=== PATIENT | male | born 1965 | race Caucasian/White ===

== ENCOUNTER 2023-11-12 07:26 | Day surgery (SDC) | payer BC ==
[2023-11-09 15:09] VITALS: BMI 25.8
[2023-11-12 07:46] VITALS: RESP 18; TEMP 97.6
[2023-11-12 12:13] VITALS: BP 110/64; PULSE 64
== END 2023-11-12 09:30 | disposition home or self-care (01) ==
LOC: FASU-ENDO 07:26
PROVIDERS: ATTEND Internal Medicine Gastroenterology
PROC: 0DBP8ZX Excision of Rectum, Via Natural or Artificial Opening Endoscopic, Diagnostic (ICD-10-PCS; 2023-11-12)
PROC: 0DBH8ZX Excision of Cecum, Via Natural or Artificial Opening Endoscopic, Diagnostic (ICD-10-PCS; principal; 2023-11-12 08:33)
DX: Z12.11 Encounter for screening for malignant neoplasm of colon (principal); D12.0 Benign neoplasm of cecum; K62.1 Rectal polyp; Z86.010 Personal history of colon polyps
CPT/HCPCS: 88305-TC

== ENCOUNTER 2024-11-30 07:43 | Day surgery (SDC) | payer BC ==
[2024-11-28 17:40] VITALS: BMI 28.1
[2024-11-30 09:15] VITALS: TEMP 98
[2024-11-30 09:29] VITALS: RESP 18
[2024-11-30 09:31] VITALS: BP 127/79; PULSE 60
== END 2024-11-30 09:58 | disposition home or self-care (01) ==
LOC: FASU-ENDO 07:43
PROVIDERS: ATTEND Internal Medicine Gastroenterology
PROC: 0DB78ZX Excision of Stomach, Pylorus, Via Natural or Artificial Opening Endoscopic, Diagnostic (ICD-10-PCS; 2024-11-30)
PROC: 0DB68ZX Excision of Stomach, Via Natural or Artificial Opening Endoscopic, Diagnostic (ICD-10-PCS; 2024-11-30)
PROC: 0DB98ZX Excision of Duodenum, Via Natural or Artificial Opening Endoscopic, Diagnostic (ICD-10-PCS; principal; 2024-11-30 09:06)
DX: K21.00 Gastro-esophageal reflux disease with esophagitis, without bleeding (principal); K44.9 Diaphragmatic hernia without obstruction or gangrene; K29.50 Unspecified chronic gastritis without bleeding
CPT/HCPCS: 88305-TC; 88342-TC

== ENCOUNTER 2025-01-20 12:03 | Emergency (ER) | payer BC ==
[2025-01-20 12:13] VITALS: BP 147/97; PULSE 62; RESP 18; TEMP 97.5; BMI 28.5
== END 2025-01-20 13:15 | disposition home or self-care (01) ==
LOC: FER 12:03
DX: T38.3X1A Poisoning by insulin and oral hypoglycemic [antidiabetic] drugs, accidental (unintentional), initial encounter (principal)
CPT/HCPCS: 82962; 99283-25

== ENCOUNTER 2025-01-21 02:19 | Emergency (ER) | payer BC ==
[2025-01-21 02:30] VITALS: BP 152/92; PULSE 77; RESP 20; TEMP 99; BMI 28.5
[2025-01-21] MEDS: SODIUM CHLORIDE 1,000 ML IV ONE (02:43)
[2025-01-21] MEDS ORDERED: ONDANSETRON 4 MG/2 ML VIAL ONE (02:44)
[2025-01-21] MEDS: ONDANSETRON 4 MG/2 ML VIAL IVPB ONE (02:53)
[2025-01-21 03:52] LABS: ABSOLUTE IMMATURE GRANULOCYTES 0.09 x10^3/uL (0.0-0.031); HEMATOCRIT 41.2 % (40.1-51.0); HEMOGLOBIN 14.2 g/dL (13.7-17.5); MCHC 34.5 g/dl (32.3-36.5); MEAN CELL VOLUME 87.8 fl (79.0-92.2); MEAN PLT VOLUME 10.3 fl (9.4-12.4); MONOCYTE # 0.48 x10^3/uL (0.30-0.82); MONOCYTE % 3.5 % (5.3-12.2); PLATELET COUNT 302 x10^3/uL (163-337)
[2025-01-21 04:22] LABS: POTASSIUM 4.2 mmol/L (3.5-5.1)
[2025-01-21 04:24] LABS: ALBUMIN 4.2 g/dl (3.4-5.0); BLOOD UREA NITROGEN 18.4 mg/dL (7-18); CALCIUM 10.3 mg/dL (8.5-10.1)
[2025-01-21 04:27] LABS: CREATININE 1.3 mg/dL (0.55-1.3)
[2025-01-21 04:29] LABS: BILIRUBIN,TOTAL 1.1 mg/dL (0.2-1); TOT PROT 7.5 g/dl (6.4-8.2)
[2025-01-21] MEDS ORDERED: METOCLOPRAMIDE HCL INJECTION 10 MG/2 ML VIAL ONE (04:42)
[2025-01-21] MEDS ORDERED: ALPRAZolam 0.25 MG TABLET ONE (04:43)
[2025-01-21] MEDS ORDERED: ACETAMINOPHEN INJECTION 100 ML ONE (04:43)
[2025-01-21] MEDS: METOCLOPRAMIDE HCL INJECTION 10 MG/2 ML VIAL IVPUSH ONE (04:46)
[2025-01-21] MEDS: ACETAMINOPHEN 1000 MG/100 ML BAG IVPB ONE (05:01)
[2025-01-21] MEDS: ALPRAZolam 1 MG TABLET PO PRN (05:32)
[2025-01-21 12:12] LABS: HCV DIAGNOSTIC IN-HOUSE W/RFLX NON-REACTIVE (NONREACTIVE)
[2025-01-21 12:15] LABS: HIV INTERPRETATION NEGATIVE (NEGATIVE)
== END 2025-01-21 06:55 | disposition home or self-care (01) ==
LOC: FER 02:19
PROC: 3E033NZ Introduction of Analgesics, Hypnotics, Sedatives into Peripheral Vein, Percutaneous Approach (ICD-10-PCS; principal; 2025-01-21)
PROC: 3E033GC Introduction of Other Therapeutic Substance into Peripheral Vein, Percutaneous Approach (ICD-10-PCS; 2025-01-21)
PROC: 3E033GC Introduction of Other Therapeutic Substance into Peripheral Vein, Percutaneous Approach (ICD-10-PCS; 2025-01-21)
PROC: 3E0337Z Introduction of Electrolytic and Water Balance Substance into Peripheral Vein, Percutaneous Approach (ICD-10-PCS; 2025-01-21)
DX: R11.2 Nausea with vomiting, unspecified (principal); F41.9 Anxiety disorder, unspecified
CPT/HCPCS: 36415; 74177-TC; 80053; 85025; 86803; 87389; 99285-25; Q9967